=== PATIENT | female | born 2000 | race Caucasian/White ===

== ENCOUNTER 2019-04-11 05:48 | Emergency (ER) | payer BC ==
[2019-04-11 05:54] VITALS: BP 120/71
[2019-04-11] MEDS ORDERED: NITROFURANTOIN MACROBID 100 MG CAP PO ONE (06:19)
[2019-04-11] MEDS ORDERED: PHENAZOPYRIDINE HCL 200 MG TAB PO ONE (06:19)
--- NOTE | 2019-04-11 06:19 | EDPHY ---
H & P Stated Complaint: frequent, painful urination, lower back pain Time Seen by Provider: 04/11/19 06:12 HPI/ROS: Chief Complaint: UTI symptoms HPI: 18-year-old female presenting with 2 days of urinary urgency frequency and dysuria. Mild low crampy abdominal pain. No nausea or vomiting. No fevers or chills. No chest pain or shortness of breath. Seizure sexually active. Last menstrual cycle ended yesterday. She is on control. No vaginal discharge or bleeding. ROS: 10 systems were reviewed and were negative except those elements noted in the HPI. PMH: Denies Social History: No smoking, no alcohol, no recreational drug use Family History: non-contributory Physical Exam: Gen: Awake, Alert, No Distress HEENT: Nose: no rhinorrhea Eyes: PERRLA, EOMI Mouth: Moist mucosa Neck: Supple, no JVD Chest: nontender, lungs clear to auscultation Heart: S1, S2 normal, no murmur Abd: Soft, non-tender, no guarding Back: no CVA tenderness, no midline tenderness Ext: no edema, non-tender Skin: no rash Neuro: CN II-XII intact, Sensation grossly intact, Strength 5/5 in bilateral upper and lower extremities - Personal History LMP (Females 10-55): 1-7 Days Ago Current Tetanus Diphtheria and Acellular Pertussis (TDAP): Yes - Medical/Surgical History Hx Asthma: No Hx Chronic Respiratory Disease: No Hx Diabetes: No Hx Cardiac Disease: No Hx Renal Disease: No Hx Cirrhosis: No Hx Alcoholism: No Hx HIV/AIDS: No Hx Splenectomy or Spleen Trauma: No - Social History Smoking Status: Never smoked Constitutional: Initial Vital Signs Temperature (C) 37.4 C 04/11/19 05:52 Heart Rate 110 H 04/11/19 05:52 Respiratory Rate 18 04/11/19 05:52 Blood Pressure 120/71 04/11/19 05:52 O2 Sat (%) 98 04/11/19 05:52 O2 Delivery Mode Room Air Allergies/Adverse Reactions: No Known Allergies Allergy (Unverified 04/11/19 05:51) Home Medications: Medication Instructions Recorded Adderall 10 MG (*) 04/11/19 Nitrofurantoin Monohyd/M-Cryst 100 mg PO BID #10 capsule 04/11/19 [Macrobid 100 mg Capsule] Nuvaring Vaginal Ring 04/11/19 Phenazopyridine HCl [Pyridium] 200 mg PO TID #6 tab 04/11/19 Medical Decision Making ED Course/Re-evaluation: 18-year-old female with UTI symptoms. No vaginal discharge. Urinalysis is not indicated. I have written for antibiotics improved EM. Will follow up as an outpatient. - Data Points Laboratory Results: 04/11/19 06:00 Urine Color PALE YELLOW Urine Appearance CLEAR Urine pH 7.0 (5.0-7.5) Ur Specific [place] < 1.001 L (1.002-1.030) Urine Protein NEGATIVE (NEGATIVE) Urine Ketones NEGATIVE (NEGATIVE) Urine Blood 3+ H (NEGATIVE) Urine Nitrate NEGATIVE (NEGATIVE) Urine Bilirubin NEGATIVE (NEGATIVE) Urine Urobilinogen NEGATIVE EU EU (0.2-1.0) Ur Leukocyte Esterase 2+ H (NEGATIVE) Urine RBC NONE SEEN /hpf /hpf (0-3) Urine WBC 15-25 /hpf H /hpf (0-3) Ur Epithelial Cells TRACE /lpf /lpf (NONE-1+) Urine Glucose NEGATIVE (NEGATIVE) Medications Given: Discontinued Medications Nitrofurantoin Macrocrystals (Macrobid) 100 mg PO EDNOW ONE PRN Reason: Protocol Stop: 04/11/19 06:20 Last Admin: 04/11/19 06:24 Dose: 100 mg Phenazopyridine HCl (Pyridium) 200 mg PO EDNOW ONE Stop: 04/11/19 06:20 Last Admin: 04/11/19 06:25 Dose: 200 mg Departure - Departure Disposition: Home, Routine, Self-Care Clinical Impression: Urinary tract infection Condition: Good Instructions: Urinary Tract Infection in Women (ED) Additional Instructions: Make sure to take your full course of antibiotics. Follow up with primary care physician in 3-4 days if symptoms are not improving. Referrals: Patient,NotPresent [Unknown] - As per Instructions Prescriptions: Nitrofurantoin Monohyd/M-Cryst [Macrobid 100 mg Capsule] 100 mg PO BID #10 capsule Phenazopyridine HCl [Pyridium] 200 mg PO TID #6 tab
== END 2019-04-11 06:28 | disposition home or self-care (01) ==
DX: N39.0 Urinary tract infection, site not specified (principal)